=== PATIENT | male | born 1955 | race African-American/Black ===

== ENCOUNTER 2019-09-06 13:40 | Inpatient (IN) | payer OTHER ==
[~2019-09-06 13:40] MED LIST: Iopamidol-370 76% 500 ML 1 ML ONE
[2019-09-06 14:48] LABS: #Eosinphils 0.1 thou/uL (0.0-0.7); #Monocytes 0.4 thou/uL (0.11-0.59); #Neutrophils 8.1 thou/uL (1.40-6.50); %Basophils 0.1 % (0.0-1.0); %Eosinophils 1.4 % (0.0-10.0); %Monocytes 3.9 % (0.0-10.0); %Neutrophils 84.6 % (42.0-75.0); Hemoglobin 12.4 g/dL (14.0-18.0); Mean Corpuscular HGB CONC 31.2 g/dL (32.0-36.0); Mean Corpuscular Hemoglobin 26.4 pg (27.0-31.0); Mean Corpuscular Volume 84.7 fL (78.0-98.0); Mean Platelet Volume 9.3 fL (7.4-10.4); Platelet Count 251 thou/uL (130-400); RBC Distribution Width 12.7 % (11.5-14.5); White Blood Cell (WBC) Count 9.6 thou/uL (4.8-10.8)
[2019-09-06 14:54] LABS: Bilirubin Negative (Negative); Blood, Urine 2+ (Negative); Clarity Turbid (Clear); Glucose, Urine (Dipstick) Normal (Negative); Leukocyte 500 Leu/uL (Negative); Nitrite 1+ (Negative); Protein, Urine (Dipstick) 300 mg/dL (Neg-Trace); RBC/HPF Greater than 50 HPF (0-3); Squamous Epithelial None Seen HPF (0-3); Urobilinogen Normal mg/dL (Less than 2); WBC/HPF Greater than 50 HPF (0-3)
[2019-09-06 15:14] LABS: ALT (SGPT) 10 U/L (8-55); AST (SGOT) 16 U/L (5-34); Albumin 3.4 g/dL (3.4-4.8); Alkaline Phosphatase 148 U/L (40-110); Anion Gap 14 mmol/L (10-20); BUN (Urea Nitrogen) 23 mg/dL (8.4-25.7); Bilirubin, Total 0.4 mg/dL (0.2-1.2); Calc. Creatinine Clearance 0 mL/min (70-130); Calcium 9.3 mg/dL (7.8-10.44); Carbon Dioxide 18 mmol/L (23-31); Chloride 107 mmol/L (98-107); Estimated GFR-MDRD 45; Globulin 5.7 g/dL (2.4-3.5); Glucose 130 mg/dL (80-115); Lipase 50 U/L (8-78); Potassium 5.8 mmol/L (3.5-5.1); Protein, Total 9.1 g/dL (5.8-8.1); Sodium 133 mmol/L (136-145)
[2019-09-06 15:16] LABS: Bacteria/HPF 4+ HPF (None Seen)
--- NOTE | 2019-09-06 16:10 | CT ---
CT abdomen and pelvis with IV contrast HISTORY: Abdominal pain. FINDINGS: Pulmonary hyperinflation and mild interstitial scarring at the lung bases. Small cyst in th e cortex of the left kidney. Solid organs are intact. No evidence of bowel obstruction or inflammation. Calcification throughout the arterial structures. Prominent degenerative changes lumbar spine. Oliva catheter decompresses the urinary bladder. Metallic seeds at the prostate bed. Within the left upper retroperitoneum, there is a vertically oriented, somewhat lobular stranding sof t tissue density nodules measuring 2.9 cm overall length and averaging 0.6 cm diameter. This has the appearance of nonpathologic, reactive appearing lymph nodes. IMPRESSION: Atherosclerosis. Incidental-type findings as detailed above. No active inflammation or other acute abnormalities are d emonstrated.
[2019-09-06] MEDS ORDERED: cefTRIAXone\\ROCEPHIN 2 GM VIAL ONE (16:20)
[2019-09-06] MEDS ORDERED: Sodium Bicarb 50 MEQ/50 ML Abboject 8.4% SYRINGE ONE (16:21)
[2019-09-06] MEDS ORDERED: Dextrose 50% Abboject 50 ML SYRINGE ONE (16:21)
[2019-09-06] MEDS ORDERED: Insulin Regular 300 UNITS/3 ML VIAL ONE (16:21)
[2019-09-06] MEDS ORDERED: Calcium Gluc 4.6 MEQ/10 ML (100 MG/ML) ONE (16:32)
--- NOTE | 2019-09-06 18:20 | PDOC.FPRHP ---
- History of Present Illness Chief Complaint: lower abdominal pain History of Present Illness: Patient is a 64M with PMHx of Hep C, HIV, CVA with residual left-sided weakness , CAD, DM2 on insulin, HTN, prostate ca s/p radiation that presents with abdominal pain. Per patient he had urinary retention yesterday and had difficulty with voiding. A duong catheter was inserted and was able to drain urine. He reports that he has had some difficulties with urinary retention in the past. He reports that lower abdominal pain began this morning. Denies fevers, chills, cp, sob. ED Course: 1amp sodium bicarb, 2g rocephin, 1 amp D50, 10u novolin - Allergies/Adverse Reactions Allergies Allergy/AdvReac Type Severity Reaction Status Date / Time RAE Inhibitors Allergy Verified 09/06/19 20:48 - Home Medications Medication Instructions Recorded Confirmed Type Acetaminophen [Tylenol Regular 650 mg PO PRN PRN 09/06/19 09/06/19 History Strength] Aspirin [Aspir-Low] 81 mg PO DAILY 09/06/19 09/06/19 History Baclofen 10 mg PO TID 09/06/19 09/06/19 History Carvedilol 25 mg PO BID 09/06/19 09/06/19 History Elviteg/Cob/Emtri/Tenof Alafen 1 tab PO DAILY 09/06/19 09/06/19 History [Genvoya Tablet] Insulin NPH Hum/Reg Insulin HM 4 units SQ BID 09/06/19 09/06/19 History [Novolin 70-30 100 Unit/ml Vial] Insulin Regular, Human [Novolin R] 5 units SQ DAILY 09/06/19 09/06/19 History Latanoprost/Pf [Latanoprost 0.005% 1 drp OP HS 09/06/19 09/06/19 History Eye Drop] Sofosbuvir/Velpatasvir 1 each PO DAILY 09/06/19 09/06/19 History [Sofosbuvir-Velpatasvir 400-100] Spironolactone 25 mg PO BID 09/06/19 09/06/19 History Terazosin HCl 5 mg PO HS 09/06/19 09/06/19 History - History PMHx:Hep C, HIV, CVA with residual left-sided weakness, CAD, DM2 on insulin, HTN , prostate ca s/p radiation PSHx: prostate radiation FHx: non-contributory Social: >20yr smoking hx 1ppd, prior drug use, prior etoh use - Review of Systems General: denies: fever/chills, night sweats Eyes: denies: eye pain, vision changes ENT: denies: nasal congestion, rhinorrhea Respiratory: denies: cough, shortness of breath Cardiovascular: denies: chest pain, palpitation Gastrointestinal: reports: abdominal pain. denies: nausea, vomiting, diarrhea Genitourinary: reports: other (urinary retention). denies: incontinence, dysuria Skin: denies: rashes, jaundice Musculoskeletal: reports: other (cannot move left arm and leg). denies: stiffness, swelling Neurological: denies: syncope, seizure Psychological: denies: anxiety, depression - Vital signs BP: [170/89] HR: [70] RR: [16] Tmax: [98.9] Pox: [98]% on [RA] Wt: [90.7kg] - Physical Exam Constitutional: NAD, awake, alert and oriented HEENT: EOMI, MMM Neck: supple, FROM Chest: no-tender to palpation, no lesions Heart: no murmurs/rubs/gallops, pulses present, other (few irregular beats heard ) Lungs: CTAB, no respiratory distress Abdomen: soft, bowel sounds present, other (slightly ttp lower abdomen) Musculoskeletal: normal structure, normal tone Neurological: CN II-XII intact, normal sensation Skin: no rash/lesions, good turgor Heme/Lymphatic: no unusual bruising or bleeding, no purpura Psychiatric: normal mood and affect, good judgment and insight FMR H&P: Results - Labs Result Diagrams: 09/06/19 14:35 09/06/19 23:31 Lab results: WBC 9.6 thou/uL (4.8-10.8) 09/06/19 14:35 Hgb 12.4 g/dL (14.0-18.0) L 09/06/19 14:35 Hct 39.8 % (42.0-52.0) L 09/06/19 14:35 MCV 84.7 fL (78.0-98.0) 09/06/19 14:35 Plt Count 251 thou/uL (130-400) 09/06/19 14:35 Neutrophils % 84.6 % (42.0-75.0) H 09/06/19 14:35 Sodium 133 mmol/L (136-145) L 09/06/19 14:35 Potassium 5.8 mmol/L (3.5-5.1) H 09/06/19 14:35 Chloride 107 mmol/L (98-107) 09/06/19 14:35 Carbon Dioxide 18 mmol/L (23-31) L 09/06/19 14:35 BUN 23 mg/dL (8.4-25.7) 09/06/19 14:35 Creatinine 1.86 mg/dL (0.7-1.3) H 09/06/19 14:35 Glucose 130 mg/dL (80-115) H 09/06/19 14:35 Lactic Acid 1.0 mmol/L (0.5-2.2) 09/06/19 16:18 Calcium 9.3 mg/dL (7.8-10.44) 09/06/19 14:35 Total Bilirubin 0.4 mg/dL (0.2-1.2) 09/06/19 14:35 AST 16 U/L (5-34) 09/06/19 14:35 ALT 10 U/L (8-55) 09/06/19 14:35 Alkaline Phosphatase 148 U/L (40-110) H 09/06/19 14:35 Serum Total Protein 9.1 g/dL (5.8-8.1) H 09/06/19 14:35 Albumin 3.4 g/dL (3.4-4.8) 09/06/19 14:35 Lipase 50 U/L (8-78) 09/06/19 14:35 Urine Ketones Negative mg/dL (Negative) 09/06/19 14:15 Urine Blood 2+ (Negative) A 09/06/19 14:15 Urine Nitrite 1+ (Negative) A 09/06/19 14:15 Ur Leukocyte Esterase 500 Scotty/uL (Negative) A 09/06/19 14:15 Urine RBC Greater than 50 HPF (0-3) A 09/06/19 14:15 Urine WBC Greater than 50 HPF (0-3) A 09/06/19 14:15 Ur Squamous Epith Cells None Seen HPF (0-3) 09/06/19 14:15 Urine Bacteria 4+ HPF (None Seen) A 09/06/19 14:15 - EKG Interpretation EKG: NSR, PACs FMR H&P: A/P - Problem List (1) HIV (human immunodeficiency virus infection) Current Visit: Yes Status: Chronic Code(s): B20 - HUMAN IMMUNODEFICIENCY VIRUS [HIV] DISEASE (2) Hepatitis C Current Visit: Yes Status: Chronic Code(s): B19.20 - UNSPECIFIED VIRAL HEPATITIS C WITHOUT HEPATIC COMA (3) CAD (coronary artery disease) Current Visit: Yes Status: Chronic Code(s): I25.10 - ATHSCL HEART DISEASE OF [place] CORONARY ARTERY W/O ANG PCTRS (4) CVA (cerebral vascular accident) Current Visit: Yes Status: Chronic Code(s): I63.9 - CEREBRAL INFARCTION, UNSPECIFIED Qualifiers: Laterality of affected vessel: right (5) DM2 (diabetes mellitus, type 2) Current Visit: Yes Status: Chronic (6) HTN (hypertension) Current Visit: Yes Status: Chronic Code(s): I10 - ESSENTIAL (PRIMARY) HYPERTENSION (7) UTI (urinary tract infection) Current Visit: Yes Status: Acute (8) Hyperkalemia Current Visit: Yes Status: Acute Code(s): E87.5 - HYPERKALEMIA (9) JANINE (acute kidney injury) Current Visit: Yes Status: Acute Code(s): N17.9 - ACUTE KIDNEY FAILURE, UNSPECIFIED (10) Prostate cancer Current Visit: Yes Status: Chronic Code(s): C61 - MALIGNANT NEOPLASM OF PROSTATE - Plan Patient is a 64M with PMHx of Hep C, HIV, CVA with residual left-sided weakness , CAD, DM2 on insulin, HTN, prostate ca s/p radiation that was admitted for hyperkalemia FMR H&P: Upper Level - Pertinent history 64 yo freedom impaired male presents for evaluation of abdominal pain and urinary retention. He has past history of prostate cancer and reports difficulty urinating for the past week. Please see hospital internship note above for further information. - Plan Date/Time: 09/06/19 1820 IJulian MD, have evaluated this patient and agree with findings/ plan as outlined by hospital internship resident. Pertinent changes/additions are listed here. 1. Hyperkalemia - Given glucose and insulin - Given albuterol nebulizers - Given Kayexalate - Recheck BMP 2. JANINE - Likely secondary to urinary retention - IVF - Obstruction relieved with duong catheter - Recheck BMP 3. Urinary retention - Duong in place - Plan for voiding trial tomorrow - Consider Urology consultation if not improved 4. UTI - Urine culture pending - Empiric antibiotics All other chronic conditions reviewed and medications to be restarted as appropriate. PCP: [facility] - [facility] CODE STATUS: FULL CODE Disposition: Stable, will admit to Telemetry for further evaluation and treatment. Addendum - Attending - Attending Attestation Date/Time: 09/06/19 0455 I personally evaluated the patient and discussed the management with Dr. Whyte I agree with the History, Examination, Assessment and Plan documented above with any addition or exceptions noted below - 64M with PMHx of Hep C, HIV, CVA with residual left-sided weakness, CAD, DM2 on insulin, HTN, prostate ca s/p radiation that presents with abdominal pain. Pain began yesterday and had urinary retention. Duong placed at facility with some improvement in pain but worsened today so came to ER. Denies fever/chills/N/V. PMH/PSH/Meds/SH reviewed and agree with resident's findings. Afebrile VSS Exam repeated by me and agree with resident's findings. Labs: WBC=9.6, H/H=12.4/39.8, Plt= 251, YY=239, K=5.8 , Hm=395, CO2=18, BUN/Cr=23/1.86, Qfgv=160, U/A - 2+ blood, (+) nitrite, (+) LE , 4+ protein, RBC.50, WBC>50, CT abd - negative, EKG- NSR, no ST changes. A/P: 1 ) Hyperkalemia- received D50, bicarb, calcium gluconate and insulin; will recheck basmet. 2) JANINE- continue IVF; recheck in AM. 3) UTI- continue rocephin; urine culture pending. 4) DM- monitor accuchecks
[2019-09-06] MEDS ORDERED: Ondansetron ODT 4 MG TAB PO PRN (22:27)
[2019-09-06] MEDS ORDERED: HumaLOG 300 UNITS/3 ML VIAL SC PRN (22:27)
[2019-09-06] MEDS ORDERED: Famotidine 20 MG TAB PO PRN (22:27)
[2019-09-06] MEDS ORDERED: Dextrose 50% Abboject 50 ML SYRINGE SLOW IVP PRN (22:27)
[2019-09-06] MEDS ORDERED: Albuterol Sulfate 2.5 mg/3 ml Neb NEB SCH (22:27)
[2019-09-06] MEDS ORDERED: Dextrose 5% in Water 1,000 ML IV PRN (22:27)
[2019-09-06] MEDS ORDERED: Acetaminophen 325 MG TAB PO PRN (22:27)
[2019-09-06] MEDS: Sodium Chloride 0.9% 1,000 ML IV SCH (23:43)
[2019-09-07 00:01] LABS: Anion Gap 11 mmol/L (10-20); BUN (Urea Nitrogen) 22 mg/dL (8.4-25.7); Calc. Creatinine Clearance 55 mL/min (70-130); Calcium 8.6 mg/dL (7.8-10.44); Carbon Dioxide 22 mmol/L (23-31); Chloride 110 mmol/L (98-107); Estimated GFR-MDRD 49; Glucose 115 mg/dL (80-115); Magnesium 1.9 mg/dL (1.6-2.6); Potassium 4.5 mmol/L (3.5-5.1); Sodium 138 mmol/L (136-145)
[2019-09-07 03:52] VITALS: BMI 25.8
[2019-09-07] MEDS ORDERED: Acetaminophen 325 MG TAB PO PRN (04:21)
[2019-09-07 06:00] LABS: Anion Gap 13 mmol/L (10-20); BUN (Urea Nitrogen) 23 mg/dL (8.4-25.7); Calc. Creatinine Clearance 52 mL/min (70-130); Calcium 8.5 mg/dL (7.8-10.44); Carbon Dioxide 20 mmol/L (23-31); Chloride 111 mmol/L (98-107); Estimated GFR-MDRD 46; Glucose 128 mg/dL (80-115); Potassium 4.7 mmol/L (3.5-5.1); Sodium 139 mmol/L (136-145)
--- NOTE | 2019-09-07 06:15 | PDOC.FM ---
- Subjective Subjective: Pt is doing well. He endorsed suprapubic tenderness. He states he is incontinent overnight, denies dribbling, dysuria, fever. - Objective Vital Signs & Weight: Vital Signs (12 hours) Temp Pulse Resp BP BP Pulse Ox 09/07/19 03:13 99.0 F 63 18 117/64 97 09/06/19 23:00 99 09/06/19 22:27 99.1 F 96 16 159/80 H 97 Weight Weight 88.904 kg I&O: 09/05/19 09/06/19 09/07/19 06:59 06:59 06:59 Intake Total 1520 Output Total 550 Balance 970 Result Diagrams: 09/06/19 14:35 09/07/19 10:51 Phys Exam - Physical Examination Constitutional: NAD Respiratory: no wheezing, clear to auscultation bilateral Cardiovascular: RRR, no significant murmur Gastrointestinal: soft, no distention Musculoskeletal: no edema, pulses present Left sided weakness Psychiatric: A&O x 3 Dx/Plan (1) JANINE (acute kidney injury) Code(s): N17.9 - ACUTE KIDNEY FAILURE, UNSPECIFIED Status: Acute (2) Hyperkalemia Code(s): E87.5 - HYPERKALEMIA Status: Acute (3) UTI (urinary tract infection) Status: Acute (4) CAD (coronary artery disease) Code(s): I25.10 - ATHSCL HEART DISEASE OF [place] CORONARY ARTERY W/O ANG PCTRS Status: Chronic (5) CVA (cerebral vascular accident) Code(s): I63.9 - CEREBRAL INFARCTION, UNSPECIFIED Status: Chronic Qualifiers: Laterality of affected vessel: right (6) DM2 (diabetes mellitus, type 2) Status: Chronic (7) HIV (human immunodeficiency virus infection) Code(s): B20 - HUMAN IMMUNODEFICIENCY VIRUS [HIV] DISEASE Status: Chronic (8) HTN (hypertension) Code(s): I10 - ESSENTIAL (PRIMARY) HYPERTENSION Status: Chronic (9) Hepatitis C Code(s): B19.20 - UNSPECIFIED VIRAL HEPATITIS C WITHOUT HEPATIC COMA Status: Chronic (10) Prostate cancer Code(s): C61 - MALIGNANT NEOPLASM OF PROSTATE Status: Chronic - Plan Plan: Mr Rahman is a 64 yo male with PMH significant for prostate cancer, HIV, Hep C , CVA, CAD, DM II, HTN who presents for urinary retention likely secondary to UTI requiring duong catheter for alleviation and hyperkalemia. 1. Hyperkalemia - Given glucose and insulin, albuterol nebulizers, Kayexalate - K WNL this morning - Likely secondary to spironolactone. Consider D/C, start new BP medication alongside home carvedilol. - Recheck BMP this afternoon, if ok then d/c kayexalate. Recheck again this evening and if stable can d/c. 2. JANINE - Likely secondary to urinary retention - IVF - Obstruction relieved with duong catheter - Creatinine unchanged, 1.80. Recheck BMP in the afternoon to see resolution of JANINE. 3. Urinary retention This happened once before after receiving radiation. - Duong in place - Plan for voiding trial later today - Consider Urology consultation if not improved - Cont terazosin, start flomax 4. UTI vs Prostatitis - Urine culture pending - Empiric antibiotics - Pending prostate exam 5. HTN - as above 6. CAD 7. CVA - pt not currently taking statin therapy; cont asa 8. DM II - continue home medications 9. HIV - continue home medications 10. Hep C 11. Hx of Prostate Ca - continue terazosin. No lesions noted on CT Abdomen/Pelvis All other chronic conditions reviewed and medications to be restarted as appropriate. PCP: [facility] CODE STATUS: FULL CODE Disposition: Stable, will admit to Telemetry for further evaluation and treatment. Addendum - Attending - Attending Attestation Date/Time: 09/07/19 0123 I personally evaluated the patient and discussed the management with Dr. King. I agree with the History, Examination, Assessment and Plan documented above with any addition or exceptions noted below.
[2019-09-07] MEDS ORDERED: VELPATASVIR PO SCH (09:00)
[2019-09-07] MEDS ORDERED: Tamsulosin HCl 0.4 MG CAP PO SCH ×2 (09:00→12:00)
[2019-09-07] MEDS ORDERED: Elviteg/Cob/Emtri/Tenof Alafen [Genvoya Tablet] 1 TAB PO SCH (09:00)
[2019-09-07] MEDS ORDERED: FLU VACC QS2019-20(6MOS UP)/PF 60 MCG/0.5 ML SYRINGE IM ONE (09:00)
[2019-09-07] MEDS ORDERED: SOFOSBUVIR PO SCH (09:00)
[2019-09-07] MEDS: Enoxaparin Sodium 30 MG/0.3 ML SYRINGE SC SCH (09:11)
[2019-09-07] MEDS: HumuLIN 70/30 (300 UNITS/3 ML VIAL) SC SCH ×2 (09:11→22:14)
[2019-09-07] MEDS: Baclofen 10 MG TAB PO SCH ×3 (09:11→20:32)
[2019-09-07] MEDS: Aspirin 81 mg Enteric Coated Tablet PO SCH (09:11)
[2019-09-07] MEDS: Carvedilol 25 MG TAB PO SCH ×2 (09:11→20:33)
[2019-09-07] MEDS: Insulin Regular 300 UNITS/3 ML VIAL SC SCH (09:11)
[2019-09-07 09:14] LABS: Troponin I 0.066 ng/mL (< 0.028)
[2019-09-07] MEDS: Sodium Chloride 0.9% 1,000 ML IV SCH ×2 (09:18→16:15)
[2019-09-07 11:25] LABS: Troponin I 0.053 ng/mL (< 0.028)
[2019-09-07 12:44] LABS: Anion Gap 12 mmol/L (10-20); BUN (Urea Nitrogen) 23 mg/dL (8.4-25.7); Calc. Creatinine Clearance 50 mL/min (70-130); Calcium 8.1 mg/dL (7.8-10.44); Carbon Dioxide 20 mmol/L (23-31); Chloride 109 mmol/L (98-107); Estimated GFR-MDRD 44; Glucose 175 mg/dL (80-115); Potassium 4.1 mmol/L (3.5-5.1); Sodium 137 mmol/L (136-145)
[2019-09-07 13:14] LABS: Creatinine, Urine 129.31 mg/dL (63-166)
[2019-09-07] MEDS ORDERED: cefTRIAXone\\ROCEPHIN 1 GM in Sodium Chloride 0.9% 100 ML IVPB SCH (17:00)
[2019-09-07] MEDS: Hydrochlorothiazide 25 MG TAB PO SCH (20:32)
[2019-09-07] MEDS: Terazosin HCl 5 MG CAP PO SCH (20:32)
[2019-09-07] MEDS: Latanoprost 0.005% Ophth Soln 2.5 ml Bottle EA EYE SCH (20:32)
[2019-09-07 21:29] LABS: Anion Gap 12 mmol/L (10-20); BUN (Urea Nitrogen) 22 mg/dL (8.4-25.7); Calc. Creatinine Clearance 58 mL/min (70-130); Carbon Dioxide 20 mmol/L (23-31); Chloride 109 mmol/L (98-107); Estimated GFR-MDRD 52; Glucose 102 mg/dL (80-115); Potassium 4.1 mmol/L (3.5-5.1); Sodium 137 mmol/L (136-145)
[2019-09-08] MEDS: Sodium Chloride 0.9% 1,000 ML IV SCH ×3 (02:18→16:18)
--- NOTE | 2019-09-08 05:59 | PDOC.FM ---
- Subjective Subjective: Pt is doing well. Just had duong catheter removed. He denies fevers, chills. Endorsed suprapubic tenderness this morning. - Objective Vital Signs & Weight: Vital Signs (12 hours) Temp Pulse Resp BP BP Pulse Ox 09/08/19 03:09 98.2 F 57 L 16 161/72 H 94 L 09/07/19 23:18 183/84 H 09/07/19 20:00 99 09/07/19 19:59 98.9 F 73 16 197/88 H 99 Weight Weight 92.079 kg I&O: 09/06/19 09/07/19 09/08/19 06:59 06:59 06:59 Intake Total 1520 3840 Output Total 550 1200 Balance 970 2640 Result Diagrams: 09/06/19 14:35 09/08/19 08:22 Phys Exam - Physical Examination Constitutional: NAD Respiratory: no wheezing, clear to auscultation bilateral Cardiovascular: RRR, no significant murmur Gastrointestinal: soft suprapubic tenderness Musculoskeletal: no edema, pulses present Psychiatric: normal affect, A&O x 3 Dx/Plan (1) JANINE (acute kidney injury) Code(s): N17.9 - ACUTE KIDNEY FAILURE, UNSPECIFIED Status: Acute (2) Hyperkalemia Code(s): E87.5 - HYPERKALEMIA Status: Acute (3) UTI (urinary tract infection) Status: Acute (4) CAD (coronary artery disease) Code(s): I25.10 - ATHSCL HEART DISEASE OF [place] CORONARY ARTERY W/O ANG PCTRS Status: Chronic (5) CVA (cerebral vascular accident) Code(s): I63.9 - CEREBRAL INFARCTION, UNSPECIFIED Status: Chronic Qualifiers: Laterality of affected vessel: right (6) DM2 (diabetes mellitus, type 2) Status: Chronic (7) HIV (human immunodeficiency virus infection) Code(s): B20 - HUMAN IMMUNODEFICIENCY VIRUS [HIV] DISEASE Status: Chronic (8) HTN (hypertension) Code(s): I10 - ESSENTIAL (PRIMARY) HYPERTENSION Status: Chronic (9) Hepatitis C Code(s): B19.20 - UNSPECIFIED VIRAL HEPATITIS C WITHOUT HEPATIC COMA Status: Chronic (10) Prostate cancer Code(s): C61 - MALIGNANT NEOPLASM OF PROSTATE Status: Chronic - Plan Plan: Mr Rahman is a 64 yo male with PMH significant for prostate cancer, HIV, Hep C , CVA, CAD, DM II, HTN who presents for urinary retention likely secondary to UTI requiring duong catheter for alleviation and hyperkalemia. 1. Hyperkalemia - resolved - Given glucose and insulin, albuterol nebulizers, Kayexalate in ED. Stabalized with treatment and d/c of spironolactone. Will change BP medication to HCTZ. - Continue to monitor 2. JANINE - Likely secondary to urinary retention. Intrinsic renal disease by FeUrea, hopefully will resolve, likely ATN. If no resolution will need to consult nephro. - IVF - Obstruction relieved with duong catheter - Creatinine unchanged, 1.80 --> 1.62. BL 1.24 3. Urinary retention This happened once before after receiving radiation. - Duong in place - Plan for voiding trial today - Consider Urology consultation if not improved. Pt did have follow up with Urology 2 weeks ago in regards to his prostate cancer. He denied any problems at that time. - Cont terazosin, start flomax 4. UTI - Urine culture MRSA susceptible to few abx. He is currently treated with rocephin which MRSA was not susceptible to cephalosporins. 5. HTN - as above 6. CAD 7. CVA - pt not currently taking statin therapy; cont asa 8. DM II - continue home medications 9. HIV - continue home medications 10. Hep C 11. Hx of Prostate Ca - continue terazosin. No lesions noted on CT Abdomen/Pelvis All other chronic conditions reviewed and medications to be restarted as appropriate. [facility] CODE STATUS: FULL CODE Disposition: Stable, will admit to Telemetry for further evaluation and treatment. Addendum - Attending - Attending Attestation Date/Time: 09/08/19 5369 I personally evaluated the patient and discussed the management with Dr. King. I agree with the History, Examination, Assessment and Plan documented above with any addition or exceptions noted below.
[2019-09-08] MEDS ORDERED: Doxycycline 100 MG in Syringe 0 ML IVPB SCH (09:00)
[2019-09-08 09:10] LABS: Anion Gap 9 mmol/L (10-20); BUN (Urea Nitrogen) 18 mg/dL (8.4-25.7); Calc. Creatinine Clearance 64 mL/min (70-130); Calcium 8.4 mg/dL (7.8-10.44); Carbon Dioxide 22 mmol/L (23-31); Chloride 108 mmol/L (98-107); Estimated GFR-MDRD 56; Glucose 151 mg/dL (80-115); Sodium 135 mmol/L (136-145)
[2019-09-08] MEDS: Enoxaparin Sodium 30 MG/0.3 ML SYRINGE SC SCH (09:11)
[2019-09-08] MEDS: HumuLIN 70/30 (300 UNITS/3 ML VIAL) SC SCH ×2 (09:12→21:02)
[2019-09-08] MEDS: Insulin Regular 300 UNITS/3 ML VIAL SC SCH (09:12)
[2019-09-08] MEDS: Baclofen 10 MG TAB PO SCH ×3 (09:13→20:46)
[2019-09-08] MEDS: Carvedilol 25 MG TAB PO SCH ×2 (09:13→20:46)
[2019-09-08] MEDS: Tamsulosin HCl 0.4 MG CAP PO SCH (09:13)
[2019-09-08] MEDS: Hydrochlorothiazide 25 MG TAB PO SCH ×2 (09:13→20:46)
[2019-09-08] MEDS: Aspirin 81 mg Enteric Coated Tablet PO SCH (09:13)
[2019-09-08] MEDS: HumaLOG 300 UNITS/3 ML VIAL SC PRN (16:58)
[2019-09-08] MEDS: Latanoprost 0.005% Ophth Soln 2.5 ml Bottle EA EYE SCH (20:47)
[2019-09-08] MEDS: Terazosin HCl 5 MG CAP PO SCH (21:02)
[2019-09-09] MEDS: Sodium Chloride 0.9% 1,000 ML IV SCH ×2 (02:33→09:28)
--- NOTE | 2019-09-09 05:47 | PDOC.FM ---
- Subjective Subjective: Pt is doing well w/o complications. He continues to urinate well. He denies retention, pain with urination. - Objective Vital Signs & Weight: Vital Signs (12 hours) Temp Pulse Resp BP BP Pulse Ox 09/09/19 04:00 98.3 F 64 21 H 166/76 H 99 09/08/19 20:34 98.4 F 61 18 193/91 H 97 Weight Weight 90.764 kg I&O: 09/07/19 09/08/19 09/09/19 06:59 06:59 06:59 Intake Total 1520 3840 3770 Output Total 550 1800 Balance 970 2040 3770 Result Diagrams: 09/06/19 14:35 09/09/19 06:03 Phys Exam - Physical Examination Constitutional: NAD HEENT: PERRLA, moist MMs Respiratory: no wheezing, clear to auscultation bilateral Cardiovascular: RRR, no significant murmur Musculoskeletal: no edema, pulses present L sided weakness Psychiatric: normal affect, A&O x 3 Dx/Plan (1) JANINE (acute kidney injury) Code(s): N17.9 - ACUTE KIDNEY FAILURE, UNSPECIFIED Status: Acute (2) Hyperkalemia Code(s): E87.5 - HYPERKALEMIA Status: Acute (3) UTI (urinary tract infection) Status: Acute (4) CAD (coronary artery disease) Code(s): I25.10 - ATHSCL HEART DISEASE OF [place] CORONARY ARTERY W/O ANG PCTRS Status: Chronic (5) CVA (cerebral vascular accident) Code(s): I63.9 - CEREBRAL INFARCTION, UNSPECIFIED Status: Chronic Qualifiers: Laterality of affected vessel: right (6) DM2 (diabetes mellitus, type 2) Status: Chronic (7) HIV (human immunodeficiency virus infection) Code(s): B20 - HUMAN IMMUNODEFICIENCY VIRUS [HIV] DISEASE Status: Chronic (8) HTN (hypertension) Code(s): I10 - ESSENTIAL (PRIMARY) HYPERTENSION Status: Chronic (9) Hepatitis C Code(s): B19.20 - UNSPECIFIED VIRAL HEPATITIS C WITHOUT HEPATIC COMA Status: Chronic (10) Prostate cancer Code(s): C61 - MALIGNANT NEOPLASM OF PROSTATE Status: Chronic - Plan Plan: Mr Rahman is a 64 yo male with PMH significant for prostate cancer, HIV, Hep C , CVA, CAD, DM II, HTN who presents for urinary retention likely secondary to UTI requiring duong catheter for alleviation and hyperkalemia. 1. Hyperkalemia - resolved - Given glucose and insulin, albuterol nebulizers, Kayexalate in ED. Stabalized with treatment and d/c of spironolactone. Will change BP medication to HCTZ, Losartan. He had chronic cough with RAE-I. D/C Losartan if he becomes symptomatic. - Continue to monitor 2. JANINE - Likely secondary to urinary retention. Intrinsic renal disease by FeUrea, resolving. Likely 2/2 urinary obstruction then ATN. - IVF - Obstruction relieved with duong catheter - Creatinine unchanged, 1.80 --> 1.42. BL 1.24 3. Urinary retention This happened once before after receiving radiation. - Voiding trial tolerated - Cont terazosin, start flomax 4. UTI - Urine culture MRSA susceptible to few abx. Started doxycycline for a 10 day course 5. HTN - as above 6. CAD 7. CVA - pt not currently taking statin therapy; cont asa 8. DM II - continue home medications 9. HIV - continue home medications 10. Hep C 11. Hx of Prostate Ca - continue terazosin. No lesions noted on CT Abdomen/Pelvis All other chronic conditions reviewed and medications to be restarted as appropriate. PCP: AN[facility] - [facility] CODE STATUS: FULL CODE Disposition: Stable, will admit to Telemetry for further evaluation and treatment. Addendum - Attending - Attending Attestation Date/Time: 09/09/19 6985 I personally evaluated the patient and discussed the management with Dr. King I agree with the History, Examination, Assessment and Plan documented above with any addition or exceptions noted below.
[2019-09-09 07:12] LABS: Anion Gap 10 mmol/L (10-20); BUN (Urea Nitrogen) 22 mg/dL (8.4-25.7); Calc. Creatinine Clearance 67 mL/min (70-130); Calcium 8.4 mg/dL (7.8-10.44); Carbon Dioxide 21 mmol/L (23-31); Chloride 112 mmol/L (98-107); Estimated GFR-MDRD 61; Glucose 97 mg/dL (80-115); Potassium 4.2 mmol/L (3.5-5.1); Sodium 139 mmol/L (136-145)
[2019-09-09] MEDS ORDERED: Hydrochlorothiazide 25 MG TAB PO SCH (09:00)
[2019-09-09] MEDS: Baclofen 10 MG TAB PO SCH ×3 (09:19→21:55)
[2019-09-09] MEDS: Aspirin 81 mg Enteric Coated Tablet PO SCH (09:19)
[2019-09-09] MEDS: Carvedilol 25 MG TAB PO SCH ×2 (09:19→21:55)
[2019-09-09] MEDS: Tamsulosin HCl 0.4 MG CAP PO SCH (09:20)
[2019-09-09] MEDS: Enoxaparin Sodium 40 MG/0.4 ML SYRINGE SC SCH (09:20)
[2019-09-09] MEDS: Doxycycline 100 MG CAP PO SCH ×2 (09:20→21:57)
[2019-09-09] MEDS: HumuLIN 70/30 (300 UNITS/3 ML VIAL) SC SCH ×2 (09:28→22:01)
[2019-09-09] MEDS: Insulin Regular 300 UNITS/3 ML VIAL SC SCH (09:33)
[2019-09-09] MEDS: HumaLOG 300 UNITS/3 ML VIAL SC PRN (13:01)
--- NOTE | 2019-09-09 13:03 | PDOC.FPRHP ---
- History of Present Illness Chief Complaint: SOB, fevers History of Present Illness: 64yo with pmh of CAD and endocarditis presents for SOB, cough and fever. Saw Dr Lynn for this __ ago and was prescribed Augmentin and an inhaler, CXR normal. Has been taking Mucinex D. Chest pain is intermittent and radiates from left lower chest to right side. Started 2 weeks ago. Currently experiencing pain. Pain is a/w SOB and was radiating down both arms earlier today. Denies n/v , diaphoresis. PCP: Dr Lynn ED Course: 1L NS, ASA - Allergies/Adverse Reactions Allergies Allergy/AdvReac Type Severity Reaction Status Date / Time RAE Inhibitors Allergy Verified 09/06/19 20:48 - Home Medications Medication Instructions Recorded Confirmed Type Acetaminophen [Tylenol Regular 650 mg PO PRN PRN 09/06/19 09/06/19 History Strength] Aspirin [Aspir-Low] 81 mg PO DAILY 09/06/19 09/06/19 History Baclofen 10 mg PO TID 09/06/19 09/06/19 History Carvedilol 25 mg PO BID 09/06/19 09/06/19 History Elviteg/Cob/Emtri/Tenof Alafen 1 tab PO DAILY 09/06/19 09/06/19 History [Genvoya Tablet] Insulin NPH Hum/Reg Insulin HM 4 units SQ BID 09/06/19 09/06/19 History [Novolin 70-30 100 Unit/ml Vial] Insulin Regular, Human [Novolin R] 5 units SQ DAILY 09/06/19 09/06/19 History Latanoprost/Pf [Latanoprost 0.005% 1 drp OP HS 09/06/19 09/06/19 History Eye Drop] Sofosbuvir/Velpatasvir 1 each PO DAILY 09/06/19 09/06/19 History [Sofosbuvir-Velpatasvir 400-100] Terazosin HCl 5 mg PO HS 09/06/19 09/06/19 History Doxycycline [Vibramycin] 100 mg PO BID #14 cap 09/08/19 Rx Hydrochlorothiazide 12.5 mg PO BID tab 09/08/19 Rx Tamsulosin HCl [Flomax] 0.4 mg PO DAILY #0 cap 09/08/19 Rx - History PMHx: Endocarditis 2009, [place] 2004 in LAD, HTN, HLD, BPH PSHx: Tonsillectomy FHx: DM, BPH Social: Social alcohol use. 1ppd for >45yrs. Denies drug use - Review of Systems General: reports: fever/chills Eyes: denies: eye pain, vision changes ENT: reports: nasal congestion, rhinorrhea Respiratory: reports: cough, shortness of breath Cardiovascular: reports: chest pain. denies: edema, orthopnea Gastrointestinal: denies: nausea, vomiting, diarrhea, constipation Genitourinary: denies: incontinence, dysuria, polyuria Skin: denies: rashes, lesions Musculoskeletal: denies: pain, arthritis/arthralgias Neurological: denies: numbness, syncope - Vital signs BP: 131/100 HR: 94 RR: [] Tmax: [] Pox: 96% on RA Wt: [] FMR H&P: Results - Labs Result Diagrams: 09/06/19 14:35 09/09/19 06:03 Lab results: WBC 9.6 thou/uL (4.8-10.8) 09/06/19 14:35 Hgb 12.4 g/dL (14.0-18.0) L 09/06/19 14:35 Hct 39.8 % (42.0-52.0) L 09/06/19 14:35 MCV 84.7 fL (78.0-98.0) 09/06/19 14:35 Plt Count 251 thou/uL (130-400) 09/06/19 14:35 Neutrophils % 84.6 % (42.0-75.0) H 09/06/19 14:35 Sodium 139 mmol/L (136-145) 09/09/19 06:03 Potassium 4.2 mmol/L (3.5-5.1) 09/09/19 06:03 Chloride 112 mmol/L (98-107) H 09/09/19 06:03 Carbon Dioxide 21 mmol/L (23-31) L 09/09/19 06:03 BUN 22 mg/dL (8.4-25.7) 09/09/19 06:03 Creatinine 1.42 mg/dL (0.7-1.3) H 09/09/19 06:03 Glucose 97 mg/dL (80-115) 09/09/19 06:03 Lactic Acid 1.0 mmol/L (0.5-2.2) 09/06/19 16:18 Calcium 8.4 mg/dL (7.8-10.44) 09/09/19 06:03 Total Bilirubin 0.4 mg/dL (0.2-1.2) 09/06/19 14:35 AST 16 U/L (5-34) 09/06/19 14:35 ALT 10 U/L (8-55) 09/06/19 14:35 Alkaline Phosphatase 148 U/L (40-110) H 09/06/19 14:35 CK-MB (CK-2) 2.0 ng/mL (0-6.6) 09/07/19 04:41 Serum Total Protein 9.1 g/dL (5.8-8.1) H 09/06/19 14:35 Albumin 3.4 g/dL (3.4-4.8) 09/06/19 14:35 Lipase 50 U/L (8-78) 09/06/19 14:35 Urine Ketones Negative mg/dL (Negative) 09/06/19 14:15 Urine Blood 2+ (Negative) A 09/06/19 14:15 Urine Nitrite 1+ (Negative) A 09/06/19 14:15 Ur Leukocyte Esterase 500 Scotty/uL (Negative) A 09/06/19 14:15 Urine RBC Greater than 50 HPF (0-3) A 09/06/19 14:15 Urine WBC Greater than 50 HPF (0-3) A 09/06/19 14:15 Ur Squamous Epith Cells None Seen HPF (0-3) 09/06/19 14:15 Urine Bacteria 4+ HPF (None Seen) A 09/06/19 14:15 - Radiology Interpretation Chest x-ray Status: image reviewed by me, report reviewed by me CT scan - chest Status: image reviewed by me, report reviewed by me FMR H&P: A/P - Problem List (1) JANINE (acute kidney injury) Current Visit: Yes Status: Acute Code(s): N17.9 - ACUTE KIDNEY FAILURE, UNSPECIFIED (2) Hyperkalemia Current Visit: Yes Status: Acute Code(s): E87.5 - HYPERKALEMIA (3) UTI (urinary tract infection) Current Visit: Yes Status: Acute (4) CAD (coronary artery disease) Current Visit: Yes Status: Chronic Code(s): I25.10 - ATHSCL HEART DISEASE OF [place] CORONARY ARTERY W/O ANG PCTRS (5) CVA (cerebral vascular accident) Current Visit: Yes Status: Chronic Code(s): I63.9 - CEREBRAL INFARCTION, UNSPECIFIED Qualifiers: Laterality of affected vessel: right (6) DM2 (diabetes mellitus, type 2) Current Visit: Yes Status: Chronic (7) HIV (human immunodeficiency virus infection) Current Visit: Yes Status: Chronic Code(s): B20 - HUMAN IMMUNODEFICIENCY VIRUS [HIV] DISEASE (8) HTN (hypertension) Current Visit: Yes Status: Chronic Code(s): I10 - ESSENTIAL (PRIMARY) HYPERTENSION (9) Hepatitis C Current Visit: Yes Status: Chronic Code(s): B19.20 - UNSPECIFIED VIRAL HEPATITIS C WITHOUT HEPATIC COMA (10) Prostate cancer Current Visit: Yes Status: Chronic Code(s): C61 - MALIGNANT NEOPLASM OF PROSTATE FMR H&P: Upper Level - Plan Date/Time: 09/09/19 Hector London, [], have evaluated this patient and agree with findings/plan as outlined by commercial intern resident. Pertinent changes/additions are listed here.
[2019-09-09] MEDS: Atorvastatin Calcium 20 MG TAB PO SCH (21:54)
[2019-09-09] MEDS: Terazosin HCl 5 MG CAP PO SCH (21:55)
[2019-09-09] MEDS: Latanoprost 0.005% Ophth Soln 2.5 ml Bottle EA EYE SCH (21:58)
--- NOTE | 2019-09-10 05:39 | PDOC.FM ---
- Subjective Subjective: Pt is doing well today. He does not have any complaints. Continues urinating well. Denies cough. He is waiting on a bed in the [facility]. - Objective Vital Signs & Weight: Vital Signs (12 hours) Temp Pulse Resp BP BP Pulse Ox 09/10/19 00:08 98.1 F 65 18 146/72 H 97 09/09/19 20:25 98 09/09/19 20:15 97.9 F 60 16 182/86 H 98 Weight Weight 90.764 kg I&O: 09/08/19 09/09/19 09/10/19 06:59 06:59 06:59 Intake Total 3840 3770 960 Output Total 1800 Balance 2040 3770 960 Result Diagrams: 09/06/19 14:35 09/09/19 06:03 Phys Exam - Physical Examination Constitutional: NAD Respiratory: no wheezing, no rales, clear to auscultation bilateral Cardiovascular: RRR, no significant murmur Gastrointestinal: soft, non-tender Musculoskeletal: no edema, pulses present Dx/Plan (1) JANINE (acute kidney injury) Code(s): N17.9 - ACUTE KIDNEY FAILURE, UNSPECIFIED Status: Acute (2) Hyperkalemia Code(s): E87.5 - HYPERKALEMIA Status: Acute (3) UTI (urinary tract infection) Status: Acute (4) CAD (coronary artery disease) Code(s): I25.10 - ATHSCL HEART DISEASE OF [place] CORONARY ARTERY W/O ANG PCTRS Status: Chronic (5) CVA (cerebral vascular accident) Code(s): I63.9 - CEREBRAL INFARCTION, UNSPECIFIED Status: Chronic Qualifiers: Laterality of affected vessel: right (6) DM2 (diabetes mellitus, type 2) Status: Chronic (7) HIV (human immunodeficiency virus infection) Code(s): B20 - HUMAN IMMUNODEFICIENCY VIRUS [HIV] DISEASE Status: Chronic (8) HTN (hypertension) Code(s): I10 - ESSENTIAL (PRIMARY) HYPERTENSION Status: Chronic (9) Hepatitis C Code(s): B19.20 - UNSPECIFIED VIRAL HEPATITIS C WITHOUT HEPATIC COMA Status: Chronic (10) Prostate cancer Code(s): C61 - MALIGNANT NEOPLASM OF PROSTATE Status: Chronic - Plan Plan: Mr Rahman is a 64 yo male with PMH significant for prostate cancer, HIV, Hep C , CVA, CAD, DM II, HTN who presents for urinary retention likely secondary to UTI requiring duong catheter for alleviation and hyperkalemia. 1. Hyperkalemia - resolved - Given glucose and insulin, albuterol nebulizers, Kayexalate in ED. Stabalized with treatment and d/c of spironolactone. Will change BP medication to HCTZ, Losartan. He had chronic cough with RAE-I. D/C Losartan if he becomes symptomatic. - Continue to monitor 2. JANINE - resolving - Likely secondary to urinary retention. Intrinsic renal disease by FeUrea, resolving. Likely 2/2 urinary obstruction then ATN. - IVF - Obstruction relieved with duong catheter - Creatinine unchanged, 1.80 --> 1.42. BL 1.24 3. Urinary retention - improved This happened once before after receiving radiation. - Voiding trial tolerated - Cont terazosin, start flomax 4. UTI - Urine culture MRSA susceptible to few abx. Started doxycycline for a 10 day course 5. HTN - as above 6. CAD 7. CVA - pt not currently taking statin therapy; cont asa 8. DM II - continue home medications 9. HIV - continue home medications 10. Hep C 11. Hx of Prostate Ca - continue terazosin. No lesions noted on CT Abdomen/Pelvis All other chronic conditions reviewed and medications to be restarted as appropriate. PCP: CC - Usp CODE STATUS: FULL CODE Disposition: Pt is stable, discharge pending [facility] placement. CM is not in this weekend making planning difficult for discharge this weekend. Addendum - Attending - Attending Attestation Date/Time: 09/10/19 [id number] I personally evaluated the patient and discussed the management with Dr. King I agree with the History, Examination, Assessment and Plan documented above with any addition or exceptions noted below. Awaiting placement to [facility].
[2019-09-10] MEDS: Carvedilol 25 MG TAB PO SCH ×2 (09:44→20:47)
[2019-09-10] MEDS: Aspirin 81 mg Enteric Coated Tablet PO SCH (09:44)
[2019-09-10] MEDS: Enoxaparin Sodium 40 MG/0.4 ML SYRINGE SC SCH (09:45)
[2019-09-10] MEDS: Baclofen 10 MG TAB PO SCH ×3 (09:45→20:46)
[2019-09-10] MEDS: Tamsulosin HCl 0.4 MG CAP PO SCH (09:45)
[2019-09-10] MEDS: Insulin Regular 300 UNITS/3 ML VIAL SC SCH (09:45)
[2019-09-10] MEDS: HumuLIN 70/30 (300 UNITS/3 ML VIAL) SC SCH ×2 (09:46→20:48)
[2019-09-10] MEDS: Doxycycline 100 MG CAP PO SCH ×2 (12:34→20:47)
[2019-09-10] MEDS: Atorvastatin Calcium 20 MG TAB PO SCH (20:46)
[2019-09-10] MEDS: Latanoprost 0.005% Ophth Soln 2.5 ml Bottle EA EYE SCH (20:47)
[2019-09-10] MEDS: Terazosin HCl 5 MG CAP PO SCH (20:47)
--- NOTE | 2019-09-11 06:14 | PDOC.FM ---
- Subjective Subjective: Pt is doing well today. He continues to urinate. He denies fever, chills. Pt is waiting for a bed at the [facility]. - Objective Vital Signs & Weight: Vital Signs (12 hours) Temp Pulse Resp BP Pulse Ox 09/11/19 04:35 98.1 F 65 16 157/78 H 97 09/11/19 00:05 97.1 F L 66 16 141/65 H 97 09/10/19 20:11 91 L 09/10/19 19:31 98.1 F 58 L 16 170/60 H 91 L Weight Weight 89.414 kg I&O: 09/09/19 09/10/19 09/11/19 06:59 06:59 06:59 Intake Total 3770 1460 850 Balance 3770 1460 850 Result Diagrams: 09/06/19 14:35 09/09/19 06:03 Phys Exam - Physical Examination Constitutional: NAD Respiratory: no wheezing, clear to auscultation bilateral Cardiovascular: RRR, no significant murmur Gastrointestinal: soft, non-tender Musculoskeletal: no edema, pulses present Dx/Plan (1) JANINE (acute kidney injury) Code(s): N17.9 - ACUTE KIDNEY FAILURE, UNSPECIFIED Status: Acute (2) Hyperkalemia Code(s): E87.5 - HYPERKALEMIA Status: Acute (3) UTI (urinary tract infection) Status: Acute (4) CAD (coronary artery disease) Code(s): I25.10 - ATHSCL HEART DISEASE OF [place] CORONARY ARTERY W/O ANG PCTRS Status: Chronic (5) CVA (cerebral vascular accident) Code(s): I63.9 - CEREBRAL INFARCTION, UNSPECIFIED Status: Chronic Qualifiers: Laterality of affected vessel: right (6) DM2 (diabetes mellitus, type 2) Status: Chronic (7) HIV (human immunodeficiency virus infection) Code(s): B20 - HUMAN IMMUNODEFICIENCY VIRUS [HIV] DISEASE Status: Chronic (8) HTN (hypertension) Code(s): I10 - ESSENTIAL (PRIMARY) HYPERTENSION Status: Chronic (9) Hepatitis C Code(s): B19.20 - UNSPECIFIED VIRAL HEPATITIS C WITHOUT HEPATIC COMA Status: Chronic (10) Prostate cancer Code(s): C61 - MALIGNANT NEOPLASM OF PROSTATE Status: Chronic - Plan Plan: Mr Rahman is a 64 yo male with PMH significant for prostate cancer, HIV, Hep C , CVA, CAD, DM II, HTN who presents for urinary retention likely secondary to UTI requiring duong catheter for alleviation and hyperkalemia. 1. Hyperkalemia - resolved - Given glucose and insulin, albuterol nebulizers, Kayexalate in ED. Stabalized with treatment and d/c of spironolactone. Will change BP medication to HCTZ, Losartan; continue coreg. BP still elevated today, maximizing Losartan/HCTZ. He had chronic cough with RAE-I. D/C Losartan if he becomes symptomatic. - Continue to monitor 2. JANINE - resolving - Likely secondary to urinary retention. Intrinsic renal disease by FeUrea, resolving. Likely 2/2 urinary obstruction then ATN. - IVF - Obstruction relieved with duong catheter 3. Urinary retention - improved This happened once before after receiving radiation. - Voiding trial tolerated - Cont terazosin, start flomax 4. UTI - Urine culture MRSA susceptible to few abx. Started doxycycline for a 10 day course 5. HTN - as above 6. CAD 7. CVA - pt not currently taking statin therapy; cont asa 8. DM II - continue home medications 9. HIV - continue home medications 10. Hep C 11. Hx of Prostate Ca - continue terazosin. No lesions noted on CT Abdomen/Pelvis All other chronic conditions reviewed and medications to be restarted as appropriate. PCP: CC - Assisted CODE STATUS: FULL CODE Disposition: Pt is stable, discharge pending [facility] placement.
[2019-09-11] MEDS: Enoxaparin Sodium 40 MG/0.4 ML SYRINGE SC SCH (08:31)
[2019-09-11] MEDS: Tamsulosin HCl 0.4 MG CAP PO SCH (08:32)
[2019-09-11] MEDS: Aspirin 81 mg Enteric Coated Tablet PO SCH (08:32)
[2019-09-11] MEDS: Doxycycline 100 MG CAP PO SCH (08:32)
[2019-09-11] MEDS: Carvedilol 25 MG TAB PO SCH (08:32)
[2019-09-11] MEDS: Baclofen 10 MG TAB PO SCH ×2 (08:32→15:03)
[2019-09-11] MEDS: HumuLIN 70/30 (300 UNITS/3 ML VIAL) SC SCH (08:33)
[2019-09-11] MEDS: Insulin Regular 300 UNITS/3 ML VIAL SC SCH (08:33)
[2019-09-11] MEDS ORDERED: Losartan/Hydrochlorothiazide 100 mg/25 mg Tablet PO SCH (09:00)
--- NOTE | 2019-09-11 15:01 | PRG ---
DATE OF SERVICE: 09/11/2019 ADDENDUM: Please add this is an addendum to the note of Dr. Aris King. I have examined the patient and agree with the assessment and plan with Dr. King, and I have discussed the case with him. Mr. Rahman was admitted with urinary tract infection causing urinary retention, status post history of prostate cancer. He is now able to void and we are simply awaiting for a bed at the [facility]. Job ID: [id number]
[2019-09-11 18:00] VITALS: BP 160/80; TEMP 98.6
[2019-09-12] MEDS ORDERED: Losartan/Hydrochlorothiazide 100 mg/25 mg Tablet PO SCH (09:00)
--- NOTE | 2019-09-12 12:56 | DIS ---
DATE OF ADMISSION: 09/06/2019 DATE OF DISCHARGE: 09/11/2019 RESIDENT: Aris King, DISCHARGE ATTENDING: Dr. Harjeet Stack. CONSULTS: None. PROCEDURES: Oliva catheter placed with alleviation and passed voiding trial. PRIMARY DIAGNOSES: 1. Urinary tract infection. 2. Acute kidney injury. 3. Urinary retention. 4. Hyperkalemia. 5. History of prostate cancer. SECONDARY DIAGNOSES: 1. History of coronary artery disease. 2. History of CVA. 3. Diabetes mellitus. 4. Human immunodeficiency virus. 5. Hepatitis C. 6. Hypertension. DISCHARGE MEDICATIONS: 1. Terazosin 5 mg p.o. at bedtime. 2. Latanoprost 7.5 mL OP at bedtime. 3. Novolin 5 units subcu daily. 4. Novolin 70/30, 40 units subcu b.i.d. 5. Genvoya one tablet p.o. daily. 6. Carvedilol 25 mg p.o. b.i.d. 7. Baclofen 10 mg p.o. t.i.d. 8. Aspirin 81 mg p.o. daily. 9. Tylenol 650 mg p.o. p.r.n. pain. 10. Sofosbuvir/velpatasvir 400/100 p.o. daily. 11. Hydrochlorothiazide 12.5 mg p.o. b.i.d. 12. Flomax 0.4 mg p.o. daily. 13. Doxycycline 100 mg p.o. b.i.d. for total of a 10-day course. Discontinued medications; spironolactone 25 mg p.o. b.i.d. HISTORY OF PRESENT ILLNESS/HOSPITAL COURSE: Scott Rahman is a 64-year-old male with past medical history significant for prostate cancer 2 years prior, hypertension, who presented to the emergency department from halfway with history of 1-day of urinary retention. In the [facility], he had a straight catheterization performed, which alleviated 2 L of urine. When he arrived to the emergency department, he had urinary Oliva catheter placed, remained placed for the first day and half of the stay. We removed a Oliva catheter and attempted a voiding trial, which he passed. He did not have any urinary retention afterwards and was voiding appropriately. Of note, he does have episodes of incontinence requiring him to wear a diaper. CT of his abdomen and pelvis did not reveal any findings or active inflammation. Nothing was noted on his prostate. The patient's urine was sent for culture and revealed he had MRSA infection, which was susceptible to nitrofurantoin and doxycycline. The patient was started on ceftriaxone initially for his urinary tract infection, and then, the patient was switched to doxycycline once the sensitivities came back. He was sent home with a 10-day course of antibiotics. The patient also found to have hyperkalemia during an episode of atrial flutter for approximately 45 minutes. The patient was asymptomatic, appears to sleep during this time period. We believe that his hyperkalemia was secondary to spironolactone use and urinary retention. We discontinued his spironolactone and changed his home medications to include hydrochlorothiazide and losartan. We continued his carvedilol. He was discharged with slightly elevated blood pressures, which could be titrated in the outpatient setting. We are unsure if he was using spironolactone for hyperaldosteronism as he was not responding great to multiple blood pressure medications. The patient required only a couple of doses of Kayexalate. He was also given glucose, insulin, albuterol. The patient tolerated the treatment well and electrolytes were repleted as needed. DISPOSITION: Stable. DISCHARGE INSTRUCTIONS: 1. Location: [facility]. 2. Diet: Heart healthy. 3. Activity: Ad amanuel. 4. Followup: Follow up with the [facility] Physician within a few days. Job ID: [id number]
--- NOTE | 2019-09-12 22:23 | PQF ---
SAP Intake Counselor Crystal Reports Winform Viewer CED SIDDIQUI GRADY *nissa [id number] CLINICAL DOCUMENTATION CLARIFICATION FORM: POST DISCHARGE Addendum to original discharge summary date: ____ Late entry note date: __ DATE: 09/12/19 ATTN: [place] Lim Please exercise your independent, professional judgment in responding to the clarification form. Clinical indicators are provided on the bottom of this form for your review Can you please further clarify if acute tubular necrosis (ATN) is ruled in or ruled out? ATN [ ] Ruled in diagnosis [ ] Continue to treat [ ] Resolved [ x] Ruled out diagnosis [ ] Cannot rule out diagnosis [ ] Other diagnosis [ ] Unable to determine In addition, please specify: Present on Admission (POA): [ ] Yes [ ] No [ ] Unable to determine For continuity of documentation, please document condition throughout progress notes and discharge summary. Thank You. CLINICAL INDICATORS - SIGNS / SYMPTOMS / LABS Family PN 09/11 Dr. King [id number] likely secondary to urinary retention. Likely urinary obstruction then ATN H and P pg.1- IVF for JANINE H and P pg.1- chief complaint: lower abdominal pain H and P pg.6- JANINE likely secondary to urinary retention Laboratory- Creatinine 1.86, 1.71, 1.80, 1.87, 1.62, 1.53, 1.42H RISK FACTORS Hx of Hep C- H and P pg.1 HIV- H and P pg.1 Hypertension- H and P pg.1 UTI H and P pg.1 Hyperkalemia- H and P pg.1 TREATMENTS Creatinine Monitoring- Laboratory Abdomen/Pelvis CT 09/06 IV fluids- MAR Urinary catheterization- ED provider (This form is maintained as a part of the permanent medical record) 2014 [employer]. All Rights Reserved [email or web address] [not provided] [email or web address]
== END 2019-09-11 19:40 | DRG 683 ==
LOC: EEVIPCON 13:40 → ERS 13:40 → 2NO 17:34 → SJJU 09-09 20:35
PROVIDERS: ADMIT Family Medicine; ATTEND Family Medicine
PROC: 0T9B70Z Drainage of Bladder with Drainage Device, Via Natural or Artificial Opening (ICD-10-PCS; principal; 2019-09-06)
DX: N17.9 Acute kidney failure, unspecified (principal); N39.0 Urinary tract infection, site not specified; I69.354 Hemiplegia and hemiparesis following cerebral infarction affecting left non-dominant side; I48.92 Unspecified atrial flutter; E87.5 Hyperkalemia; B18.2 Chronic viral hepatitis C; I25.10 Atherosclerotic heart disease of native coronary artery without angina pectoris; Z21 Asymptomatic human immunodeficiency virus [HIV] infection status; E11.9 Type 2 diabetes mellitus without complications; N13.9 Obstructive and reflux uropathy, unspecified; I10 Essential (primary) hypertension; B95.62 Methicillin resistant Staphylococcus aureus infection as the cause of diseases classified elsewhere; T50.0X5A Adverse effect of mineralocorticoids and their antagonists, initial encounter; Z85.46 Personal history of malignant neoplasm of prostate; Z79.4 Long term (current) use of insulin; Z88.8 Allergy status to other drugs, medicaments and biological substances; Z79.82 Long term (current) use of aspirin; Z79.899 Other long term (current) drug therapy; Z87.891 Personal history of nicotine dependence
CPT/HCPCS: 36415; 36416; 74177; 80048; 80053; 81003; 81015; 82553; 82570; 83605; 83690; 83735; 84484; 84540; 85025; 87040; 87077; 87086; 87149; 87186; 87205; 93005; 96365; 96375; J0696; J1650; J1815; J3490; Q9967